=== PATIENT | female | born 1935 | race Caucasian/White ===

== ENCOUNTER 2016-11-05 17:46 | Inpatient (IN) | payer OTHER ==
[~2016-11-05] VITALS: Ht 162.6 cm; Wt 78.0 kg
--- NOTE | ~2016-11-05 | EKG ---
[address] [place] [address] ELECTROCARDIOGRAM REPORT Name: IZZY ECHOLS Room #: 464-P ADM IN M.R.#: [id number] Admission: 11/05/16 Attend Phys: Elijah Hannah MD Discharge: Date of : 35 Report #: [id number] THIS REPORT FOR: //name// [facility] ED Test Date: 2016-11-05 Test Time: 18:15:59 Pat Name: IZZY ECHOLS Department: Room: 464 Gender: F Practice Nurse: [id number] : 1935 Requested By: Clotilde Galarza Order Number: [id number] MD: Alejandro Jackson Measurements Intervals [place] Rate: 64 P: -20 AK: 187 QRS: -2 QRSD: 92 T: 36 QT: 381 QTc: 393 Interpretive Statements Sinus rhythm Atrial premature complexes Left ventricular hypertrophy No previous ECG available for comparison Electronically Signed On 11-06-2016 8:19:19 COMBINATION MAN by Alejandro Jackson [email or web address] <ELECTRONICALLY SIGNED> By: Alejandro Jackson MD 11/06/16 0819 1815 14 Alejandro Jackson MD /JACK
[2016-11-05 17:50] VITALS: BP 148/56
[2016-11-05 18:25] LABS: ABSOLUTE NEUTROPHILS 4.4 thou/uL (1.4-8.2); BASOPHILS 0.7 % (0.0-2.0); EOSINOPHILS 3.2 % (0.0-3.0); HEMATOCRIT 44.1 % (37.0-47.0); HEMOGLOBIN 15.2 gm/dL (12.0-15.0); LYMPHOCYTES 33.4 % (24.0-44.0); MCH 30.6 pg (26.0-34.0); MCHC 34.5 % (28.0-37.0); MCV 88.7 fL (80.0-100.0); MONOCYTES 8.9 % (1.0-8.0); PLATELET COUNT 263 thou/uL (150-400); POLYS 53.8 % (36.0-66.0); RBC 4.97 mil/uL (4.20-5.00); RDW 13.7 % (10.5-14.5); WBC 8.1 thou/uL (4.0-11.0)
[2016-11-05 18:26] LABS: MANUAL DIFF NO
[2016-11-05] MEDS ORDERED: CLARITIN10 M2 PO (18:34)
[2016-11-05] MEDS ORDERED: ZOLOFT25 MG PO (18:34)
[2016-11-05] MEDS ORDERED: LEVOTHYROXIN0.088 MG PO (18:34)
[2016-11-05] MEDS ORDERED: TRAMADOL 50 MG50 MG PO (18:34)
[2016-11-05 18:38] LABS: ANION GAP 14 mmol/L (7-16); BUN 50 mg/dL (7-18); CALCIUM 9.4 mg/dL (8.5-10.1); CHLORIDE 93 mmol/L (98-107); CO2 20 mmol/L (21-32); CREATININE 1.7 mg/dL (0.6-1.3); GLUCOSE 93 mg/dL (70-99); SODIUM 127 mmol/L (136-145)
[2016-11-05 18:48] LABS: ALBUMIN 3.8 g/dL (3.4-5.0); ALKALINE PHOSPHATASE 72 U/L (46-116); SGOT 24 U/L (15-37); SGPT 26 U/L (30-65); TOTAL BILIRUBIN 0.5 mg/dL (<0.1-1.0); TOTAL PROTEIN 7.4 g/dL (6.4-8.2); TROPONIN-I < 0.04 ng/mL (<0.04-0.07)
[2016-11-05 19:47] LABS: URINE BILIRUBIN NEGATIVE (Negative); URINE BLOOD 1+ (Negative); URINE COLOR YELLOW; URINE GLUCOSE-RANDOM* NEGATIVE (Negative); URINE KETONES NEGATIVE (Negative); URINE NITRITE NEGATIVE (Negative); URINE PROTEIN (DIPSTICK) NEGATIVE (Negative); URINE SPECIFIC GRAVITY <= 1.005 (1.003-1.035); URINE UROBILINOGEN 0.2 E.U./dl (0.2-1.0)
[2016-11-05 19:53] LABS: CASTS None Seen /LPF (None Seen); SQUAMOUS 4-10 Moderate /LPF (0-3)
[2016-11-05 19:54] LABS: CRYSTALS None Seen /LPF (None Seen); URINE RBC 3-10 Few /HPF (0-2)
[2016-11-05 20:47] LABS: URINE BILIRUBIN NEGATIVE (Negative); URINE BLOOD TRACE (Negative); URINE COLOR YELLOW; URINE GLUCOSE-RANDOM* NEGATIVE (Negative); URINE KETONES NEGATIVE (Negative); URINE NITRITE NEGATIVE (Negative); URINE PROTEIN (DIPSTICK) NEGATIVE (Negative); URINE UROBILINOGEN 0.2 E.U./dl (0.2-1.0)
[2016-11-05 20:49] VITALS: BP 148/67
[2016-11-06 04:25] VITALS: BP 122/58
[2016-11-06 07:40] VITALS: BP 152/85
[2016-11-06 11:00] LABS: CALCIUM 8.5 mg/dL (8.5-10.1); CREATININE 1.2 mg/dL (0.6-1.3); MAGNESIUM 1.6 mg/dL (1.8-2.4); POTASSIUM 3.8 mmol/L (3.5-5.1)
[2016-11-06 11:55] LABS: URINE BILIRUBIN NEGATIVE (Negative); URINE BLOOD TRACE (Negative); URINE COLOR YELLOW; URINE GLUCOSE-RANDOM* NEGATIVE (Negative); URINE KETONES NEGATIVE (Negative); URINE LEUKOCYTES-REFLEX 1+ (Negative); URINE PROTEIN (DIPSTICK) NEGATIVE (Negative); URINE UROBILINOGEN 0.2 E.U./dl (0.2-1.0)
[2016-11-06 12:01] LABS: CASTS None Seen /LPF (None Seen); CRYSTALS None Seen /LPF (None Seen); SQUAMOUS 4-10 Moderate /LPF (0-3); URINE RBC None Seen /HPF (0-2); URINE WBC-REFLEX 6-15 Few /HPF (0-5)
[2016-11-06 13:00] VITALS: BP 151/65
[2016-11-06 16:00] VITALS: BP 143/76; BP 164/70; BP 170/79
[2016-11-06 20:00] VITALS: BP 148/79; BP 157/62; BP 178/84
[2016-11-07 03:59] LABS: ABSOLUTE NEUTROPHILS 3.9 thou/uL (1.4-8.2); BASOPHILS 0.4 % (0.0-2.0); EOSINOPHILS 3.3 % (0.0-3.0); HEMATOCRIT 37.8 % (37.0-47.0); LYMPHOCYTES 29.2 % (24.0-44.0); MCH 30.2 pg (26.0-34.0); MCHC 33.4 % (28.0-37.0); MCV 90.4 fL (80.0-100.0); MONOCYTES 9.9 % (1.0-8.0); PLATELET COUNT 201 thou/uL (150-400); POLYS 57.2 % (36.0-66.0); RBC 4.18 mil/uL (4.20-5.00); RDW 13.9 % (10.5-14.5); WBC 6.8 thou/uL (4.0-11.0)
[2016-11-07 04:09] LABS: HEMOGLOBIN 12.6 gm/dL (12.0-15.0); MANUAL DIFF NO
[2016-11-07 04:19] LABS: CALCIUM 7.9 mg/dL (8.5-10.1); CREATININE 0.8 mg/dL (0.6-1.3); MAGNESIUM 1.4 mg/dL (1.8-2.4); POTASSIUM 3.9 mmol/L (3.5-5.1)
[2016-11-07 04:45] VITALS: BP 139/79
[2016-11-07 07:30] VITALS: BP 144/102
[2016-11-07 11:54] VITALS: BP 131/58
[2016-11-07 12:08] VITALS: BP 144/102
[2016-11-07] MEDS ORDERED: LEVOTHYROXINE 0.1 MG PO (12:13)
[2016-11-07] MEDS ORDERED: CIPRO500 MG PO (12:13)
[2016-11-07 13:03] VITALS: BP 144/102
[2016-11-07 13:11] VITALS: BP 144/102
== END 2016-11-07 14:26 | disposition home health service (06) | DRG 689 ==
LOC: ER 17:46 → 4W 19:55 → EROBS 19:55 → 4W 20:49
PROVIDERS: Internal Medicine; Nurse Practitioner; Physician Assistant
DX: N39.0 Urinary tract infection, site not specified (principal); N17.0 Acute kidney failure with tubular necrosis; E87.1 Hypo-osmolality and hyponatremia; E03.9 Hypothyroidism, unspecified; I10 Essential (primary) hypertension; E86.0 Dehydration; F32.9 Major depressive disorder, single episode, unspecified; J30.2 Other seasonal allergic rhinitis; E87.6 Hypokalemia; Z87.891 Personal history of nicotine dependence; Z93.2 Ileostomy status; Z98.890 Other specified postprocedural states; Z91.81 History of falling
CPT/HCPCS: 10045

== ENCOUNTER 2017-07-05 03:29 | Inpatient (IN) | payer OTHER ==
[~2017-07-05] VITALS: Ht 160 cm; Wt 86.4 kg
[2017-07-05] VITALS (7 sets, daily range): BP systolic 117–193; BP diastolic 53–94
--- NOTE | ~2017-07-05 | EKG ---
[address] [place] [address] ELECTROCARDIOGRAM REPORT Name: IZZY ECHOLS Room #: 427-P ADM IN M.R.#: [id number] Admission: 07/05/17 Attend Phys: Jaquan Rose MD Discharge: Date of : 35 Report #: [id number] THIS REPORT FOR: //name// [facility] ED Test Date: 2017-07-05 Test Time: 04:06:00 Pat Name: IZZY ECHOLS Department: Room: 427 Gender: F Iron [employer] Fore[employer]: [id number] : 1935 Requested By: Adam Laguerre Order Number: [id number] MD: Suraj Gamino Measurements Intervals [place] Rate: 62 P: 8 RI: 202 QRS: 15 QRSD: 96 T: 46 QT: 405 QTc: 412 Interpretive Statements Sinus rhythm Atrial premature complexes Abnormal R-wave progression, early transition LVH with secondary repolarization abnormality Baseline wander in lead(s) V1,V3 Compared to ECG 11/05/2016 18:15:59 No significant change was found Electronically Signed On 07-07-2017 13:30:38 CDT by Suraj Gamino [email or web address] <ELECTRONICALLY SIGNED> By: Suraj Gamino MD, [facility] 07/07/17 1330 [id number] Suraj Gamino MD, [facility] /EPI
--- NOTE | ~2017-07-05 | HC ---
[facility] [place] [address] CONSULTATION Name: IZZY ECHOLS Room #: 427-P [facility] IN ..#: [id number] Admission: 07/05/17 Attend Phys: Jaquan Rose MD Discharge: 07/09/17 Date of : 35 Report #: [id number] THIS REPORT FOR: //name// CC: Jaquan Rose NO PCP DATE OF SERVICE: 07/05/2017 HISTORY OF PRESENT ILLNESS: I have been asked to evaluate this 81-year-old lady who has had multiple ileostomy revisions and abdominal wall reconstruction approximately 2 years ago with revision of the ileostomy in [place], [place]. The patient came to the Emergency Room with the onset of vomiting and abdominal pain in the last few hours prior to beginning last night. The patient had 3 episodes of vomiting during the night. She complains of worsening abdominal pain around the ileostomy bag. She has constant pain and is not more than cramping. She does have some ileostomy effluent. Her CT scan was consistent with possible new onset of mid to distal mechanical small bowel obstruction. 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 The patient also had right shoulder replacement in 2017. ALLERGIES: No known drug allergies. MEDICATIONS: Synthroid 0.1 mg daily, Cipro 500 mg b.i.d., Claritin, enteric coated aspirin 81 mg, tramadol 50 mg daily. SOCIAL HISTORY: The patient does not smoke cigarettes, having quit greater than 1 year ago. She does drink alcohol on occasion. No illegal drugs. Daughters are in attendance. The patient lives in a intermediate facility. REVIEW OF SYSTEMS: A 10-point review of systems essentially noncontributory except for recent change in gastrointestinal function and pain. PHYSICAL EXAMINATION: GENERAL: Reveals a patient who is alert, cooperative, with some early forgetfulness in regard to question and recent events. Daughters are at the bedside. HEENT: Glasses for acuity. No scleral icterus. NECK: Supple, no adenopathy. LUNGS: Clear at the bases bilaterally. CARDIOVASCULAR: Regular rate and rhythm. ABDOMEN: Ileostomy in the upper abdomen, slightly to the right of midline. No distention. She is mildly tender. No guarding or rebound is present. Multiple surgical scars are present of the abdominal wall. [facility] [address] [place] [address] CONSULTATION Name: IZZY ECHOLS Heather Room #: 427-P DIS IN .R.#: [id number] Admission: 07/05/17 Attend Phys: Jaquan Rose MD Discharge: 07/09/17 Date of : 35 Report #: [id number] NEUROLOGIC: She appears to be oriented x 3 with some mild forgetfulness, and bilateral motor symmetry. DIAGNOSTIC IMPRESSION: Lactic acid within normal limits. White blood cell count within normal limits. CT scan is consistent with possible early small bowel obstruction. The patient does have ileostomy output. I would recommend n.p.o. status, IV fluids and reevaluate the patient with labs and x-rays in the a.m. Thank you for allowing us to participate in her care. By: [id number] [id number] Chu Maravilla MD, FACS /nt
[~2017-07-05 03:29] MED LIST: CIPRO500 MG PO; CLARITIN10 M2 PO; LEVOTHYROXIN0.088 MG PO; LEVOTHYROXINE 0.1 MG PO; TRAMADOL 50 MG50 MG PO; ZOLOFT25 MG PO
[2017-07-05 03:54] LABS: ABSOLUTE NEUTROPHILS 9.6 thou/uL (1.4-8.2); BASOPHILS 0.4 % (0.0-2.0); HEMATOCRIT 44.9 % (37.0-47.0); HEMOGLOBIN 15.3 gm/dL (12.0-15.0); LYMPHOCYTES 14.5 % (24.0-44.0); MCH 29.8 pg (26.0-34.0); MCV 87.8 fL (80.0-100.0); MONOCYTES 4.5 % (1.0-8.0); PLATELET COUNT 218 thou/uL (150-400); POLYS 79.6 % (36.0-66.0); RBC 5.12 mil/uL (4.20-5.00); RDW 15.5 % (10.5-14.5)
[2017-07-05 03:55] LABS: MANUAL DIFF NO
[2017-07-05 04:20] LABS: ANION GAP 10 mmol/L (7-16); BUN 21 mg/dL (7-18); CALCIUM 9.8 mg/dL (8.5-10.1); CHLORIDE 100 mmol/L (98-107); CO2 24 mmol/L (21-32); CREATININE 1.1 mg/dL (0.6-1.0); GLUCOSE 150 mg/dL (74-106); POTASSIUM 4.1 mmol/L (3.5-5.1); SODIUM 134 mmol/L (136-145)
[2017-07-05 04:29] LABS: ALBUMIN 4.2 g/dL (3.4-5.0); ALKALINE PHOSPHATASE 71 U/L (46-116); SGOT 23 U/L (15-37); SGPT 17 U/L (30-65); TOTAL BILIRUBIN 0.6 mg/dL (<0.1-1.0); TOTAL PROTEIN 8.2 g/dL (6.4-8.2); TROPONIN-I < 0.04 ng/mL (<0.04-0.07)
[2017-07-05] MEDS ORDERED: ASPIRIN81 M2 PO (04:54)
[2017-07-05] MEDS ORDERED: TYLENOL325 MG (04:55)
[2017-07-05] MEDS ORDERED: TRAMADOL 50 MG50 MG PO (04:56)
[2017-07-05 05:32] LABS: URINE BILIRUBIN NEGATIVE (Negative); URINE BLOOD NEGATIVE (Negative); URINE COLOR YELLOW; URINE GLUCOSE-RANDOM* NEGATIVE (Negative); URINE KETONES NEGATIVE (Negative); URINE LEUKOCYTES-REFLEX NEGATIVE (Negative); URINE PROTEIN (DIPSTICK) NEGATIVE (Negative); URINE SPECIFIC GRAVITY 1.015 (1.003-1.035); URINE UROBILINOGEN 0.2 E.U./dl (0.2-1.0)
[2017-07-05 07:58] LABS: ABG SAMPLE TYPE ARTERIAL; BE(vivo) -4.8 mmol/L (-2 to +3); HCO3 21.5 mmol/L (22.0-26.0); O2(CT) 20.1 mL/dL (15.0-23.0); O2Hb 93.5 % (92.0-98.0); PCO2 44.2 mmHg (35.0-45.0); PO2 74.8 mmHg (80.0-100.0); sO2 93.7 % (92.0-98.0); tCO2 22.9 mmol/L (24.0-30.0)
[2017-07-05 07:59] LABS: STICK SITE R.RADIAL; pH 7.305 (7.360-7.450)
[2017-07-06 04:46] VITALS: BP 146/84
[2017-07-06 06:09] LABS: ABSOLUTE NEUTROPHILS 5.8 thou/uL (1.4-8.2); BASOPHILS 0.3 % (0.0-2.0); EOSINOPHILS 1.2 % (0.0-3.0); HEMATOCRIT 41.2 % (37.0-47.0); HEMOGLOBIN 13.9 gm/dL (12.0-15.0); LYMPHOCYTES 24.2 % (24.0-44.0); MANUAL DIFF NO; MCH 30.1 pg (26.0-34.0); MCHC 33.7 g/dL (28.0-37.0); MCV 89.2 fL (80.0-100.0); MONOCYTES 8.3 % (1.0-8.0); PLATELET COUNT 230 thou/uL (150-400); RBC 4.62 mil/uL (4.20-5.00); RDW 15.3 % (10.5-14.5); WBC 8.9 thou/uL (4.0-11.0)
[2017-07-06 06:16] LABS: CALCIUM 8.3 mg/dL (8.5-10.1); POTASSIUM 3.9 mmol/L (3.5-5.1)
[2017-07-06 08:00] VITALS: BP 152/64
[2017-07-06 16:00] VITALS: BP 138/50
[2017-07-06 19:40] VITALS: BP 148/42
[2017-07-07 04:20] VITALS: BP 137/90
[2017-07-07 05:05] LABS: CALCIUM 7.9 mg/dL (8.5-10.1); CREATININE 0.6 mg/dL (0.6-1.0); POTASSIUM 3.7 mmol/L (3.5-5.1)
[2017-07-07 07:47] VITALS: BP 149/82
[2017-07-07 15:49] VITALS: BP 145/65
[2017-07-07 20:43] VITALS: BP 113/73
[2017-07-08 04:33] VITALS: BP 169/76
[2017-07-08 07:49] VITALS: BP 155/64
[2017-07-08 16:29] VITALS: BP 198/84
[2017-07-08 20:30] VITALS: BP 161/84
[2017-07-09 06:00] VITALS: BP 169/79
[2017-07-09 07:26] VITALS: BP 159/69
[2017-07-09 10:33] VITALS: BP 159/69
== END 2017-07-09 11:21 | disposition home or self-care (01) | DRG 388 ==
LOC: ER 03:29 → 4E 06:06 → EROBS 06:06 → 4E 06:25 → ENTRNSPT 07-09 10:50 → EDTRNSPTSTS 07-09 10:52 → 4E 07-09 11:21
PROVIDERS: Emergency Medicine; Nurse Practitioner Family; Surgery
DX: K56.5 Intestinal adhesions [bands] with obstruction (postinfection) (principal); N17.1 Acute kidney failure with acute cortical necrosis; E03.9 Hypothyroidism, unspecified; I10 Essential (primary) hypertension; Z96.611 Presence of right artificial shoulder joint; Z93.2 Ileostomy status; Z86.73 Personal history of transient ischemic attack (TIA), and cerebral infarction without residual deficits; Z90.49 Acquired absence of other specified parts of digestive tract; Z79.899 Other long term (current) drug therapy; Z87.891 Personal history of nicotine dependence
CPT/HCPCS: 10084